=== PATIENT | female | born 1935 | race Caucasian/White ===

== ENCOUNTER 2016-11-14 10:28 | Inpatient (IN) | payer OTHER ==
[~2016-11-14] VITALS: Ht 165.1 cm; Wt 82.5 kg
[~2016-11-14 10:28] MED LIST: ALPRAZOLAM0.25 M2 PO; AMLODIPINE BESY10 MG PO; APRESOLINE50 MG PO; ASPIR 8181 M1 PO; CARDIZEM CD,CA180 MG PO; CLONIDINE HCL0.1 MG PO; CYANOCOBALAM1000 MCG PO; FLONASE16 G1 BOTH NARES; FORTAMET500 M1 PO; GARAMYCIN5 M1 BOTH EYES; HYDROCHLOROTHIA25 MG PO; K-DUR10 MEQ PO; LASIX20 MG PO; LISINOPRIL40 MG PO; LOSARTAN POTAS100 MG PO; PHENERGAN-CODE120 ML PO; PIOGLITAZONE HC15 MG PO; PLAVIX75 MG PO; TOBRAMYCIN SULFA5 ML BOTH EYES; TOPROL XL50 MG PO; TYLENOL EXTRA500 MG PO; VITAMIN B12 100MCG PO; VITAMIN D31000 UNI2 PO; VITAMIN D31000 UNIT PO; ZOCOR20 MG PO; ZYRTEC5 MG PO
[2016-11-22] MEDS ORDERED: HYDROCHLOROTHIA50 MG PO (13:13)
[2016-11-25] VITALS (13 sets, daily range): BP systolic 138–187; BP diastolic 37–91
[2016-11-25 06:28] LABS: POINT-OF-CARE METER ID UU14174212
[2016-11-25 09:33] LABS: POINT-OF-CARE METER ID UU13113675
[2016-11-25 12:07] LABS: METH RESISTANT S AUREUS PCR NEGATIVE (NEGATIVE)
[2016-11-25 12:14] LABS: PROBE CHECK PASS; SPECIMEN PROCESSING CONTROL PASS
[2016-11-25 12:26] LABS: POINT-OF-CARE METER ID UU13113731
[2016-11-25] MEDS ORDERED: HYDROCODON-ACE1 EAC7 PO (17:11)
[2016-11-25 17:50] LABS: POINT-OF-CARE METER ID UU13113731
[2016-11-25 18:51] LABS: TROP-I INTERPRETATION NEGATIVE; TROPONIN-I 0.04 ng/mL (0.0-0.30)
[2016-11-25 22:55] LABS: POINT-OF-CARE METER ID UU14162636
[2016-11-26] VITALS (11 sets, daily range): BP systolic 135–178; BP diastolic 43–69
[2016-11-26 07:44] LABS: TROP-I INTERPRETATION NEGATIVE; TROPONIN-I 0.06 ng/mL (0.0-0.30)
[2016-11-26 07:55] LABS: POINT-OF-CARE METER ID UU14162636
[2016-11-26 11:38] LABS: POINT-OF-CARE METER ID UU14162636
== END 2016-11-26 13:27 | disposition home or self-care (01) | DRG 38 ==
LOC: 2SOUTH → 4WEST 11-25 10:50 → 2SOUTH 11-25 10:53 → 4WEST 11-26 13:27
PROVIDERS: Internal Medicine Cardiovascular Disease; Surgery
PROC: 03CL0ZZ Extirpation of Matter from Left Internal Carotid Artery, Open Approach (ICD-10-PCS; principal; 2016-11-25)
DX: I65.22 Occlusion and stenosis of left carotid artery (principal); I47.1 Supraventricular tachycardia; I35.0 Nonrheumatic aortic (valve) stenosis; E11.9 Type 2 diabetes mellitus without complications; I25.10 Atherosclerotic heart disease of native coronary artery without angina pectoris; I10 Essential (primary) hypertension; E78.5 Hyperlipidemia, unspecified; Z87.891 Personal history of nicotine dependence
CPT/HCPCS: 82948; 84484; 87641; 93005; 94799; C1768; J0131; J0360; J0690; J1170; J1644; J1650; J1815; J2405; J2720; J2795; J3010; J7120

== ENCOUNTER 2017-12-13 14:45 | Emergency (ER) | payer OTHER ==
[~2017-12-13] VITALS: Ht 160 cm; Wt 85.8 kg
[~2017-12-13 14:45] MED LIST changes: +HYDROCHLOROTHIA50 MG PO; +HYDROCODON-ACE1 EAC7 PO
[2017-12-13 16:20] LABS: HEMATOCRIT 37.4 % (36.0-46.0); HEMOGLOBIN 12.6 G/DL (11.9-15.5); MCH 29.9 PG (29.0-34.0); MCHC 33.7 G/DL (30.0-36.0); MCV 88.8 FL (83-99); PLATELET COUNT 176 K/uL (156-360); RBC DIS.WIDTH-CV 13.4 % (11.8-14.6); RBC DIS.WIDTH-SD 43.8 % (39-53); RED BLOOD COUNT 4.21 M/uL (3.80-5.20); WHITE BLOOD COUNT 8.1 K/uL (4.1-10.2)
[2017-12-13 16:28] LABS: CHLORIDE 104 mEq/L (99-109); POTASSIUM 3.9 mEq/L (3.7-5.4); SODIUM 140 mEq/L (136-147)
[2017-12-13 16:30] LABS: GLUCOSE 109 mg/dL (70-99)
[2017-12-13 16:34] LABS: CREATININE 0.6 mg/dL (0.6-1.3); GFR ESTIMATE (CALCULATED) > 59 mL/min/
[2017-12-13 16:35] LABS: UREA NITROGEN (BUN) 29 mg/dL (9-23)
[2017-12-13 17:48] VITALS: BP 158/54
== END 2017-12-13 17:48 | disposition home or self-care (01) ==
LOC: EME 14:45
PROVIDERS: Physician Assistant
DX: I10 Essential (primary) hypertension (principal); E78.5 Hyperlipidemia, unspecified; E11.9 Type 2 diabetes mellitus without complications; I25.2 Old myocardial infarction; Z95.5 Presence of coronary angioplasty implant and graft; Z87.891 Personal history of nicotine dependence; Z79.82 Long term (current) use of aspirin
CPT/HCPCS: 80048; 85027; 93005; 99281; 99284